=== PATIENT | male | born 2000 | race Asian ===

== ENCOUNTER → 2021-04-24 | Emergency (ER) | payer OTHER ==
[~2021-04-24] VITALS: Ht 170 cm; Wt 78.0 kg
[2021-04-24 15:57] VITALS: BP 125/81; PULSE 85; TEMP 98.5
== END ==
LOC: COL.ER 14:56
DX: R53.81 Other malaise (principal)

== ENCOUNTER 2021-06-18 19:03 | Emergency (ER) | payer OTHER ==
[~2021-06-18] VITALS: Ht 171 cm; Wt 75.0 kg
[2021-06-18 19:18] VITALS: TEMP 98.8
[2021-06-18 21:42] VITALS: BP 132/70; PULSE 76
== END 2021-06-18 21:42 | disposition home or self-care (01) ==
LOC: COL.ER 19:03
DX: J06.9 Acute upper respiratory infection, unspecified (principal); F17.210 Nicotine dependence, cigarettes, uncomplicated; Z20.822 Contact with and (suspected) exposure to COVID-19

== ENCOUNTER 2022-04-10 13:20 | Emergency (ER) | payer OTHER ==
[~2022-04-10] VITALS: Ht 170 cm; Wt 75.0 kg
[2022-04-10 13:20] VITALS: TEMP 97.4
[2022-04-10 14:23] LABS: ALBUMIN 4.1 gm/dL (3.5-5.0); CALCIUM 9.2 mg/dL (8.4-10.2); CREATININE, serum 0.85 mg/dL (0.72-1.25); PHOSPHOROUS 1.8 mg/dL (2.3-4.7)
[2022-04-10 14:45] VITALS: BP 104/74; PULSE 62
== END 2022-04-10 14:55 | disposition home or self-care (01) ==
LOC: COL.ER 13:20
PROVIDERS: Emergency Medicine
DX: R51.9 Headache, unspecified (principal); R42 Dizziness and giddiness
CPT/HCPCS: J2765; J7040